=== PATIENT | female | born 1940 | race Caucasian/White ===

== ENCOUNTER 2019-02-26 09:29 | Outpatient (CLI) | payer MEDICARE, OTHER ==
--- NOTE | 2019-02-26 10:53 | MRI ---
MRI Lumbar Spine Noncontrast: HISTORY: Low back pain. Lumbosacral disc bulge. Bilateral worsening weakness and numbness. COMPARISON: None FINDINGS: An 11 mm slightly irregular increased T2-weighted signal intensity structure is seen in the midportio n right kidney which is difficult to characterize on this exam. A follow-up renal ultrasound may be beneficial for further characterization. There are findings suggesting bilateral parapelvic renal cys ts. Conus medullaris is normal in morphology and terminates at the L1 level. There is right convex scoliosis of the lumbar spine. A focus of increased T1 and T2-weighted signal i ntensity is seen in the T11 and L2 vertebral bodies most suggestive of hemangiomas. There is a subcentimeter low signal intensity focus seen in the L1 vertebral body which may represent a tiny aty pical hemangioma. Multilevel degenerative changes are seen throughout the lumbar spine. T12-L1 level: There is a mild disc osteophyte complex which narrows ventral subarachnoid space. Neura l foramina are patent. L1-2: There is loss of intervertebral disc height. Schmorl's node is seen in the inferior endplate of the L1 vertebral body. A broad-based disc osteophyte complex is present. This flattens the anterior aspect of the thecal sac. The neural foramina are patent. L2-3: There is loss of intervertebral disc height. There is trace retrolisthesis of L2 on L3. A disc osteophyte complex is present with left paracentral disc extrusion noted which extends inferiorly and lies posterior to the superior endplate of the L3 vertebral body in the subarticular zone. There is no significant central canal narrowing at this level. Mild left and minimal right-sided neural foraminal narrowing is present. L3-4: There is trace retrolisthesis at this level. There is loss of intervertebral disc height with b road-based disc osteophyte complex present. Facet hypertrophic changes and ligaments thickening are noted. There is generalized mild to moderate narrowing of the central spinal canal. Mild to moderate bilateral neural foraminal narrowing is present. L4-5: There is trace retrolisthesis of L4 on L5. There is loss of intervertebral disc height. Endplat e degenerative changes and Schmorl's nodes are present at this level. A disc osteophyte complex is present at this level. Some hypertrophic changes and ligamentous thickening are present. There is onl y mild encroachment on the thecal sac at this level. There is mild to moderate right-sided neural foraminal narrowing. The left neural foramen is patent. L5-S1: There is grade 1 anterolisthesis of L5 on S1 with suggestion of bilateral pars defects at this level. There is uncovering of the intervertebral disc in addition to a mild disc bulge and small central disc protrusion. There are prominent facet hypertrophic changes at this level. There is mild effacement of the right posterolateral aspect of the thecal sac due to degenerative changes and ligamentous thickening. There is moderate to severe right and moderate left-sided neural foraminal na rrowing. IMPRESSION: 1. Irregular increased T2-weighted signal intensity lesion midportion right kidney. Renal sonogram is recommended in attempt to further characterize this lesion. 2. Probable bilateral parapelvic renal cysts. 3. Multilevel degenerative changes seen throughout the lumbar spine with right convex scoliosis prese nt. 4. Spondylolisthesis lumbosacral junction. 5. Findings favored to represent a subcentimeter atypical hemangioma in the L1 vertebral body. Follow -up evaluation in 6 months may be helpful for further evaluation
== END 2019-02-26 09:30 | disposition home or self-care (01) ==
LOC: SCSMRI 09:29
PROVIDERS: ATTEND Physical Medicine & Rehabilitation
DX: M54.5 Low back pain (principal); M47.816 Spondylosis without myelopathy or radiculopathy, lumbar region; M41.9 Scoliosis, unspecified; M43.17 Spondylolisthesis, lumbosacral region; N28.9 Disorder of kidney and ureter, unspecified
CPT/HCPCS: 72148

== ENCOUNTER 2019-03-21 13:02 | Outpatient (CLI) | payer MEDICARE, OTHER ==
--- NOTE | 2019-03-21 13:59 | ULT ---
US Renal Bilateral STANDARD History: [Renal lesion seen February 26, 2019] Comparison: Real-time grayscale and color evaluation of the kidneys was performed. Findings: Real-time grayscale and color evaluation of the kidneys was performed. Right kidney measure s 9.6 x 4 x 4.7 cm and left kidney measures 9.2 x 4.5 x 5.5 cm. Prevoid urinary bladder volume is 20 mL. The ultrasound findings of the right kidney is indeterminate. Technologist states there a possible in terpolar right renal mass measuring up to 3.8 cm. Calculus is present within the inferior pole right kidney measuring up to 1.2 cm. Left parapelvic cyst. Impression: Indeterminate right renal lesion. Dedicated renal protocol CT or MRI is recommended.
== END 2019-03-21 13:03 | disposition home or self-care (01) ==
LOC: SCSULT 13:02
PROVIDERS: ATTEND Physical Medicine & Rehabilitation
DX: D30.01 Benign neoplasm of right kidney (principal)
CPT/HCPCS: 76770

== ENCOUNTER 2019-04-01 07:18 | Outpatient (CLI) | payer MEDICARE, OTHER ==
--- NOTE | 2019-04-01 08:25 | CT ---
CT ABDOMEN WITH AND WITHOUT IV CONTRAST: HISTORY: Right renal mass. CORRELATION: Renal ultrasound of 03/21/2019 and MRI lumbar spine of 02/26/2019. FINDINGS: The lung bases are clear. There is a tiny low-density lesion in the left lobe of the liver, too small to characterize. The spleen, pancreas, and adrenal glands are normal. No calcified gallstones are seen. There is an approximately 1 cm low-density lesion in the right lower renal cortex corresponding to th e finding on the MRI. There may be an associated punctate calcification in this lesion. The lesion is too small to characterize. No definite enhancement is seen. There are bilateral parapelvic renal c ysts. No mass is seen in the left kidney. No obstructing calculi are seen on either side. There is normal contrast excretion into the ureters. No free air, free fluid or lymphadenopathy is identified. There are vascular calcifications without e vidence of aneurysmal dilatation of the abdominal aorta. There are degenerative changes in the spine. IMPRESSION: Indeterminate 1 cm low-density right renal lesion. A follow-up exam is recommended in 6 months. Transcribed Date/Time: 04/01/2019 8:54 AM
[2019-04-01] MEDS ORDERED: Iopamidol 370 76% 100 ML VIAL ONE (09:00)
== END 2019-04-01 07:19 | disposition home or self-care (01) ==
LOC: SCSCT 07:18
PROVIDERS: ATTEND Physical Medicine & Rehabilitation
DX: N28.89 Other specified disorders of kidney and ureter (principal)
CPT/HCPCS: 74160; 82565; Q9967

== ENCOUNTER 2019-10-16 07:35 | Outpatient (CLI) | payer MEDICARE, OTHER ==
--- NOTE | 2019-10-16 13:15 | CT ---
CT OF THE ABDOMEN AND PELVIS WITH AND WITHOUT IV CONTRAST INDICATION: Hematuria TECHNIQUE: Noncontrast CT of the abdomen and pelvis was performed. Postcontrast images were obtained in the nephrographic phase and delayed phase. Axial and coronal reformatted images were constructed from the raw data. COMPARISON: MR of the lumbar spine dated February 26, [address] the abdomen dated April 01, 2019 FINDINGS: ABDOMEN: Lung bases: Clear Liver: No focal lesion. Gallbladder: Normal appearing. Pancreas: Normal. Adrenal glands: Normal. Spleen: Normal. Kidneys and ureters: The 8 mm hypodensity involving the right mid kidney is unchanged in size. There are multiple peripelvic cysts seen bilaterally. No gross urothelial lesion identified. Vasculature: There are moderate vascular calcifications seen involving the visualized vasculature. Lymph nodes:No lymphadenopathy. Free fluid in abdomen:No free fluid is evident. PELVIS: Small and large bowel: Normal Appendix:Normal Bladder: Normal. Rectal and perirectal soft tissues:Normal. Reproductive structures: Normal. Free fluid in pelvis: No free fluid is evident. Lymphadenopathy pelvis: No lymphadenopathy is evident. Osseous structures: No acute osseous abnormality. No destructive osteolytic or osteoblastic lesion i s identified. There is scattered degenerative and osteoarthritic changes. Soft tissues:Normal. IMPRESSION: 1. Stable small 8 mm hypodensity involving the right kidney is difficult to fully characterize due to its size. Would recommend a follow-up CT the abdomen and pelvis with and without contrast in one year to document stability. 2. Bilateral peripelvic cysts.
== END 2019-10-16 07:36 | disposition home or self-care (01) ==
LOC: SCSCT 07:35
PROVIDERS: ATTEND Physical Medicine & Rehabilitation
DX: N28.89 Other specified disorders of kidney and ureter (principal); N94.89 Other specified conditions associated with female genital organs and menstrual cycle
CPT/HCPCS: 74178

== ENCOUNTER 2019-12-02 08:09 | Outpatient (CLI) | payer MEDICARE, OTHER ==
--- NOTE | 2019-12-02 08:50 | RAD ---
EXAM: 5 views of the cervical spine HISTORY: Chronic neck and back pain for years COMPARISON: None FINDINGS: AP, lateral, flexion/extension, and open mouth odontoid views of the cervical spine shows n ormal height and alignment of the vertebral bodies without fracture or subluxation. Moderate degenerative changes are seen throughout the cervical spine with intervertebral disc space narrowing and osteophyte formation. No prevertebral soft tissue swelling is seen. Alignment is unchanged with flexion and extension. IMPRESSION: No significant cervical spine abnormality.
--- NOTE | 2019-12-02 08:53 | RAD ---
EXAM: 4 views of the lumbosacral spine HISTORY: Low back pain COMPARISON: None FINDINGS: 4 views of the lumbosacral spine shows diffuse intervertebral disc space narrowing and oste ophyte formation. There is grade 1 anterolisthesis of L5 on S1. Moderate posterior facet arthrosis is seen throughout the lumbar spine. Alignment is unchanged with flexion and extension. The sacroiliac joints are unremarkable. IMPRESSION: Moderate to severe degenerative changes of lumbar spine with unchanged alignment with jeanine ding
--- NOTE | 2019-12-02 11:44 | MRI ---
MRI THORACIC SPINE WITHOUT CONTRAST: INDICATION: Stenosis. Back and neck pain. FINDINGS: Thoracic vertebrae maintain height and alignment. Disk spaces are preserved. No compression deformi ty or vertebral edema. Degenerative disk and end plate changes are noted at T12-L1. Anterior osteop hytes are prominent at T12-L1 and L1-2. No significant disk bulge or protrusion seen at any of the t horacic levels. No central canal or foraminal stenosis seen in the thoracic spine. Thoracic cord is seen well and appears normally maintained. IMPRESSION: Mild to moderate degenerative changes of thoracic spine most pronounced at the thoracolumbar level. No disk protrusion or central canal stenosis seen within the thoracic spinal canal. POS: [facility]
--- NOTE | 2019-12-02 11:48 | MRI ---
MRI CERVICAL SPINE WITHOUT CONTRAST: Date: 12/02/2019 INDICATION: Neck pain. Cervical stenosis. Comparison made to previous MRI cervical spine dated January 2013. FINDINGS: Cervical vertebra maintain height. Moderate degenerative changes are again noted. Loss of disc space at all levels. Prominent anterior osteophytes are again seen, similar to the prior exam of 2012. Slig ht anterolisthesis at C4-5 is again seen, stable from the prior exam. Posterior disc bulges and spond ylosis are present at several levels. Findings at each level described below. C2-3: Mild disc bulge and spondylosis. No central canal or foraminal stenosis. C3-4: Disc bulge and spondylosis efface the anterior subarachnoid space. Mild foraminal narrowing du e to facet and uncinate hypertrophy. C4-5: Slight anterolisthesis which appears stable. Posterior disc bulge and spondylosis abut the ant erior cord. Evidence of mild bilateral foraminal narrowing, more prominent on the right due to facet and uncinate hypertrophy. C5-6: There is a prominent disc bulge and spondylytic change which impinges on and mildly flattens t he anterior cord. Bilateral foraminal narrowing due to facet and uncinate hypertrophy. The findings a t this level are not significantly changed from 2013. C6-7: Disc bulge and spondylosis efface the anterior subarachnoid space. Right foraminal stenosis du e to uncinate hypertrophy. C7-T1: Mild diffuse disc bulge effaces the anterior subarachnoid space. No evidence of foraminal liza nosis. Cord signal is normally preserved. IMPRESSION: Moderate to severe degenerative changes of the cervical spine again noted, but not significantly hurtado ged from 2013. Posterior disc and spondylytic changes at several levels are seen with foraminal narro wing as described above. Findings are most pronounced at C5-6 where there is cord impingement as note d above. POS: [facility]
== END 2019-12-02 08:10 | disposition home or self-care (01) ==
LOC: SCSMRI 08:09
PROVIDERS: ATTEND Physician Assistant Surgical
DX: M48.062 Spinal stenosis, lumbar region with neurogenic claudication (principal); M54.5 Low back pain; R26.89 Other abnormalities of gait and mobility; R27.9 Unspecified lack of coordination; M47.816 Spondylosis without myelopathy or radiculopathy, lumbar region; M53.86 Other specified dorsopathies, lumbar region; M47.812 Spondylosis without myelopathy or radiculopathy, cervical region; M48.02 Spinal stenosis, cervical region; M25.80 Other specified joint disorders, unspecified joint; M47.814 Spondylosis without myelopathy or radiculopathy, thoracic region; M47.815 Spondylosis without myelopathy or radiculopathy, thoracolumbar region
CPT/HCPCS: 72050; 72120; 72141; 72146